=== PATIENT | male | born 1970 | race Caucasian/White ===

== ENCOUNTER 2017-10-21 10:24 | Emergency (ER) | payer OTHER, BC ==
[2015-03-07 10:36] VITALS: Ht 182.9 cm; Wt 82.6 kg
[~2017-10-21] VITALS: Ht 182.9 cm; Wt 82.6 kg
[~2017-10-21 10:24] MED LIST: COM PO; CYCL-277 PO; DOCU-416 PO; IBUP200C74 PO; IBUP800T37 PO; NO ROUTINE MEDS; OXYC-854 PO; TRAM-420 PO
[2017-10-21] MEDS ORDERED: IBUP-1687 PO (10:40)
--- NOTE | 2017-10-21 11:02 | ER Report ---
History and Physical Time Seen By MD: 11:02 Hx. 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 The patient is here for concerns related to an occupational exposure and would like to have an occupational exposure panel drawn. The patient has also had his hepatitis A and B vaccines. The patient has no other complaints no aches chills, nausea vomiting, diarrhea, fevers. Allergies: Coded Allergies: No Known Drug Allergies (Verified , 02/20/08) Home Meds Reported Medications Ibuprofen (ADVIL) 200 Mg Tablet, 1-2 TAB PO Q6-8H 10/21/17 Discontinued Reported Medications Ibuprofen (ADVIL) 200 Mg Capsule, 1-2 CAP PO Q6-8H Y for PAIN, CAPSULE 03/04/15 Discontinued Scripts Tramadol Hcl (TRAMADOL HCL) 50 Mg Tablet, 1-2 TAB PO Q4H Y for PAIN, #30 TAB 0 Refills Prov:ANGÉLICA VELAZQUEZ MD 03/25/15 Ibuprofen (IBUPROFEN) 800 Mg Tablet, 1 TAB PO TID Y for PAIN, #60 TAB 0 Refills Prov:ANGÉLICA VELAZQUEZ MD 03/21/15 Docusate Sodium (COLACE) 100 Mg Capsule, 1 CAP PO BID, #30 CAP 0 Refills TAKE WITH A FULL GLASS OF WATER Prov:ANGÉLICA VELAZQUEZ MD 03/06/15 Cyclobenzaprine Hcl (CYCLOBENZAPRINE HCL) 5 Mg Tablet, 10 MG PO TID for Muscle Relaxant, #30 TAB TAKE TWO TABLETS BY MOUTH THREE TIMES A DAY Prov:TORO KRAUS DO 01/22/15 Past Medical/Surgical History Patient has a past medical and surgical history of bilateral hand tendon repair , hernia repair. Reviewed Nurses Notes: Yes Hx Smoking: No Smoking Status: Never Smoker Exposure to Second Hand Smoke?: No Hx Substance Use Disorder: No Hx Alcohol Use: Yes Constitutional Vital Sign - Last 24 Hours 10/21/17 10/21/17 10:28 11:24 Temp 97.6 Pulse 84 74 Resp 16 B/P (MAP) 132/87 120/81 (94) Pulse Ox 95 95 O2 Delivery Room Air Room Air Physical Exam General appearance: Alert no distress. Respiratory: Chest is non tender, lungs are clear to auscultation. Cardiac: Regular rate and rhythm, no murmurs, clicks or rubs. DIFFERENTIAL DIAGNOSIS: After history and physical exam differential diagnosis was considered for hepatitis B, hepatitis A, HIV. Medical Decision Making Data Points Laboratory Hematology Test 10/21/17 10:48 Hepatitis B Surface Antigen Negative (NEGATIVE) Hepatitis B Surface Antibody Positive Hepatitis C Antibody Negative (NEGATIVE) HIV (1&2) Antibody Negative (NEGATIVE) Chemistry Test 10/21/17 10:48 Hepatitis B Surface Antigen Negative (NEGATIVE) Hepatitis B Surface Antibody Positive Hepatitis C Antibody Negative (NEGATIVE) HIV (1&2) Antibody Negative (NEGATIVE) ED Course/Re-evaluation ED Course The patient was admitted to a room. History and physical were obtained. Differential diagnoses were considered. After the history was obtained we elected to draw the patient's blood for an acute occupational exposure panel. I did explain to the patient that we will call if there are any abnormalities or he can contact his primary care provider as well. The patient had no other questions or concerns at this time and was discharged home. The patient was being transported was positive for flu, as result Mr. Elliott was given a prescription for Tamiflu. Decision to Disposition Date: Oct 21, 2017 Decision to Disposition Time: 11:10 Depart Departure Latest Vital Signs Vital Signs Date Time Temp Pulse Resp B/P (MAP) Pulse Ox O2 Delivery O2 Flow Rate FiO2 10/21/17 11:24 74 120/81 (94) 95 Room Air 10/21/17 10:28 97.6 16 Impression: Primary Impression: Occupational exposure in workplace Condition: Improved Disposition: HOME OR SELF-CARE Patient Instructions: Body Substance Exposure (ED) Additional Instructions: Drink plenty of fluids. Get plenty of rest. If anything is abnormal we will contact you. The likelihood of exposure is very low. Follow up with your primary care provider. May return to the ED for worsening symptoms. ADRIANA PECK FILM EXAMINER-BC Oct 21, 2017 11:02
[2017-10-21 11:24] VITALS: BP 120/81
== END 2017-10-21 11:30 | disposition home or self-care (01) ==
LOC: ER 10:25
DX: Z77.21 Contact with and (suspected) exposure to potentially hazardous body fluids (principal)
CPT/HCPCS: 36415; 86703; 86706; 86803; 87340; 99281

== ENCOUNTER → 2017-12-02 | Outpatient (CLI) | payer OTHER, BC ==
[2015-03-07 10:36] VITALS: BMI 24.7
[~2017-12-02] MED LIST changes: +IBUP-1687 PO
== END ==
LOC: LAB 12:39
PROVIDERS: ATTEND Emergency Medicine
DX: Z77.21 Contact with and (suspected) exposure to potentially hazardous body fluids (principal)
CPT/HCPCS: 36415; 86703

== ENCOUNTER → 2018-01-17 | Outpatient (CLI) | payer OTHER, BC ==
[2015-03-07 10:36] VITALS: BMI 24.7
== END ==
LOC: LAB 08:48
PROVIDERS: ATTEND Emergency Medicine
DX: Z77.21 Contact with and (suspected) exposure to potentially hazardous body fluids (principal)
CPT/HCPCS: 36415; 86703

== ENCOUNTER → 2018-01-30 | Outpatient (REF) ==
[2015-03-07 10:36] VITALS: BMI 24.7
== END ==
LOC: AUD 09:15
PROVIDERS: ATTEND Internal Medicine
DX: Z01.10 Encounter for examination of ears and hearing without abnormal findings (principal)
CPT/HCPCS: 92552

== ENCOUNTER → 2018-04-27 | Outpatient (CLI) | payer OTHER, BC ==
[2015-03-07 10:36] VITALS: BMI 24.7
== END ==
LOC: LAB 13:08
PROVIDERS: ATTEND Emergency Medicine
DX: Z77.21 Contact with and (suspected) exposure to potentially hazardous body fluids (principal)
CPT/HCPCS: 36415; 86703; 86803